=== PATIENT | male | born 1955 | race African-American/Black ===

== ENCOUNTER 2017-08-17 14:21 | Inpatient (IN) ==
[2017-08-17] MEDS ORDERED: levETIRAcetam 500 MG/5 ML VIAL IV ONE (14:44)
[2017-08-17 15:11] LABS: Basophils % 0.8 % (0.0-0.8); Eosinophils % 0.2 % (0.00-10.9); Hemoglobin 12.2 GM/DL (14.0-18.0); Immature Granulocytes % 0.6 %; Immature Granulocytes Absolute 0.03 #; Lymphocytes # 0.8 10*3/uL (1.4-4.0); Lymphocytes % 14.3 % (21.2-54.2); Mean Corpuscular HGB Conc 33.9 GM/DL (32-36); Mean Corpuscular Hemoglobin 29 PG (27-34); Mean Corpuscular Volume 85.7 FL (87-102); Mean Platelet Volume 10.6 FL (9.6-12.0); Monocytes # 0.4 10*3/uL (0.11-0.8); Monocytes % 7.8 % (1.7-12.7); Neutrophils % 76.3 % (38.7-73.9); Platelet Count 182 T/CUMM (130-400); Red Cell Distribution Width 15.3 % (9.3-17.3); White Blood Count 5.2 T/CUMM (4-12)
[2017-08-17 15:19] LABS: INR 0.9; Partial Thromboplastin Time 21.2 SECS (0-40)
[2017-08-17] MEDS ORDERED: LABETALOL 20 MG/4 ML SYRINGE IV STA ×2 (15:23→16:33)
[2017-08-17 15:26] LABS: Ammonia 24 UMOL/L (11-32)
[2017-08-17 15:27] LABS: Barbiturates Screen,Urine Negative (Negative); Benzodiazepines Screen,Urine Positive (Negative); Cannabinoid Screen,Urine Negative (Negative); Opiate Screen,Urine Negative (Negative); Phencyclidine Screen,Urine Negative (Negative)
[2017-08-17 15:29] LABS: Apearance,Urine Slightly Hazy (Clear); Bacteria,Urine Many /HPF (Few); Bilirubin,Urine Negative (Negative); Blood, Urine Small mg/dL (Negative); Glucose,Urine (UA) Negative (Negative); Ketones,Urine Negative (Negative); Mucus,Urine Occasional /LPF (Occasional); Nitrite,Urine Negative (Negative); Protein,Urine >=500 MG/DL; RBC,Urine 6 /HPF (0-4); Squamous Epithelial Cell,Urine Occasional /HPF (0-10); Urine Color Yellow (Yellow); Urine Specific Gravity 1.012 (1.001-1.035); Urine Urobilinogen < 2.0 EU/DL (0.2-1.0); WBC,Urine 47 /HPF (0-6)
[2017-08-17 15:42] LABS: Alanine Aminotransferase 14 U/L (16-61); Albumin 3.1 G/DL (3.4-5.0); Alkaline Phosphatase 127 U/L (45-117); Aspartate Amino Transferase 25 U/L (0-37); Bilirubin,Total < 0.39 MG/DL (0.2-1.0); Blood Urea Nitrogen 15 MG/DL (7-18); Calcium 8.5 MG/DL (8.5-10.1); Glucose 83 MG/DL (74-106); Potassium 4.7 MMOL/L (3.5-5.1); Sodium 136 MMOL/L (136-145); Total Protein 7.9 G/DL (6.4-8.3)
[2017-08-17] MEDS ORDERED: MAGNESIUM SULF RIDER 2 GM in PREMIX 1 EACH IV STA (15:48)
[2017-08-17] MEDS ORDERED: LABETALOL 20 MG/4 ML SYRINGE IV ONE ×2 (15:48→16:11)
[2017-08-17] MEDS ORDERED: cefTRIAXone 1,000 MG in SODIUM CHLORIDE 0.9% 100 ML IV STA (15:50)
[2017-08-17] MEDS ORDERED: MAGNESIUM SULF RIDER 50 ML IV ONE (15:53)
[2017-08-17] MEDS ORDERED: cefTRIAXone 1,000 MG VIAL ONE (16:10)
[2017-08-17] MEDS ORDERED: ASPIRIN 300 MG SUPP RECTAL SCH (16:30)
[2017-08-17] MEDS ORDERED: THIAMINE INJ 100 MG, FOLIC ACID INJ 1 MG, MAGNESIUM SULF INJ 2 GM, MULTIVITAMIN INJ 10 ... IV ONE ×2 (16:43→17:07)
[2017-08-17] MEDS ORDERED: LORazepam 2 MG/1 ML VIAL IV PRN (16:45)
[2017-08-17 16:49] LABS: Risk Ratio 2.14; Troponin I Only 0.041 NG/ML (0.00-0.045); VLDL CHOLESTEROL 15.6 MG/DL
[2017-08-17] MEDS: LABETALOL 20 MG/4 ML SYRINGE IV PRN (17:14)
[2017-08-17] MEDS: SODIUM CHLORIDE 0.9% 1,000 ML IV SCH (18:24)
[2017-08-17] MEDS: ENOXAPARIN 30 MG/0.3 ML SYRINGE SUBCUT SCH (20:27)
[2017-08-17] MEDS: ROSUVASTATIN 20 MG TABLET PO SCH (20:34)
[2017-08-18] MEDS: SODIUM CHLORIDE 0.9% 1,000 ML IV SCH ×4 (02:34→16:10)
[2017-08-18 06:22] LABS: Basophils % 0.6 % (0.0-0.8); Eosinophils # 0.1 10*3/uL (0.0-0.87); Hematocrit 33.1 VOL% (42.0-52.0); Hemoglobin 11.1 GM/DL (14.0-18.0); Immature Granulocytes % 0.4 %; Immature Granulocytes Absolute 0.02 #; Lymphocytes # 0.9 10*3/uL (1.4-4.0); Lymphocytes % 16.4 % (21.2-54.2); Mean Corpuscular HGB Conc 33.5 GM/DL (32-36); Mean Corpuscular Hemoglobin 29 PG (27-34); Mean Corpuscular Volume 87.3 FL (87-102); Mean Platelet Volume 11.6 FL (9.6-12.0); Monocytes # 0.7 10*3/uL (0.11-0.8); Monocytes % 12.9 % (1.7-12.7); Neutrophils # 3.6 10*3/uL (1.4-7.4); Neutrophils % 68.7 % (38.7-73.9); Platelet Count 168 T/CUMM (130-400); Red Blood Count 3.79 MC/CUMM (3.8-5.5); Red Cell Distribution Width 15.5 % (9.3-17.3); White Blood Count 5.2 T/CUMM (4-12)
[2017-08-18 06:51] LABS: Calcium 7.9 MG/DL (8.5-10.1); Osmolality,Calculated 277.5 MOS/KG (273-304); Potassium 4.7 MMOL/L (3.5-5.1)
[2017-08-18] MEDS ORDERED: cefTRIAXone 1,000 MG in SODIUM CHLORIDE 0.9% 100 ML IV SCH (09:00)
[2017-08-18] MEDS ORDERED: INFLUENZA VIRUS VACCINE 0.5 ML SYRINGE IM ONE (09:00)
[2017-08-18] MEDS: ASPIRIN CHEW 81 MG TABLET PO SCH (10:48)
[2017-08-18] MEDS ORDERED: cefTRIAXone 1,000 MG in SYRINGE 1 EACH IV SCH (16:00)
[2017-08-18] MEDS: ENOXAPARIN 30 MG/0.3 ML SYRINGE SUBCUT SCH (21:13)
[2017-08-18] MEDS: ROSUVASTATIN 20 MG TABLET PO SCH (21:14)
[2017-08-19] MEDS: ASPIRIN CHEW 81 MG TABLET PO SCH (09:57)
[2017-08-19] MEDS: cephALEXin 500 MG CAPSULE PO SCH ×2 (09:57→21:43)
[2017-08-19] MEDS: ENOXAPARIN 30 MG/0.3 ML SYRINGE SUBCUT SCH (21:43)
[2017-08-19] MEDS: ROSUVASTATIN 20 MG TABLET PO SCH (21:43)
[2017-08-20] MEDS: ASPIRIN CHEW 81 MG TABLET PO SCH (10:01)
[2017-08-20] MEDS: cephALEXin 500 MG CAPSULE PO SCH ×2 (10:01→21:28)
[2017-08-20] MEDS: ENOXAPARIN 30 MG/0.3 ML SYRINGE SUBCUT SCH (21:29)
[2017-08-20] MEDS: ROSUVASTATIN 20 MG TABLET PO SCH (21:31)
[2017-08-21] MEDS: cephALEXin 500 MG CAPSULE PO SCH (08:09)
[2017-08-21] MEDS: ASPIRIN CHEW 81 MG TABLET PO SCH (08:09)
[2017-08-21] MEDS: LABETALOL 20 MG/4 ML SYRINGE IV PRN (12:01)
[2017-08-21 12:19] VITALS: BP 211/107
== END 2017-08-21 14:25 | disposition home or self-care (01) | DRG 64 ==
LOC: N.ED 14:21 → N.EDINP 16:12 → SUATTDRO 16:12 → N.CC 16:44 → N.5E 08-18 12:15
PROVIDERS: ADMIT Internal Medicine; ATTEND Internal Medicine Geriatric Medicine

== ENCOUNTER 2017-11-30 21:51 | Inpatient (IN) ==
[2017-11-30] MEDS ORDERED: hydrALAZINE 20 MG/1 ML VIAL IV STA ×2 (22:09→23:25)
[2017-11-30] MEDS ORDERED: SODIUM CHLORIDE 0.9% 1,000 ML IV STA (22:09)
[2017-11-30 23:36] LABS: Basophils % 0.6 % (0.0-0.8); Eosinophils # 0.1 10*3/uL (0.0-0.87); Eosinophils % 2.2 % (0.00-10.9); Hematocrit 36.8 VOL% (42.0-52.0); Hemoglobin 12.1 GM/DL (14.0-18.0); Immature Granulocytes % 0.2 %; Immature Granulocytes Absolute 0.01 #; Lymphocytes # 1.2 10*3/uL (1.4-4.0); Lymphocytes % 24.7 % (21.2-54.2); Mean Corpuscular HGB Conc 32.9 GM/DL (32-36); Mean Corpuscular Hemoglobin 29 PG (27-34); Mean Corpuscular Volume 87.8 FL (87-102); Mean Platelet Volume 11.2 FL (9.6-12.0); Monocytes # 0.5 10*3/uL (0.11-0.8); Monocytes % 10.1 % (1.7-12.7); Neutrophils # 2.9 10*3/uL (1.4-7.4); Neutrophils % 62.2 % (38.7-73.9); Platelet Count 156 T/CUMM (130-400); Red Blood Count 4.19 MC/CUMM (3.8-5.5); Red Cell Distribution Width 14.6 % (9.3-17.3); White Blood Count 4.7 T/CUMM (4-12)
[2017-11-30] MEDS ORDERED: ASPIRIN 325 MG TABLET PO STA (23:50)
[2017-11-30 23:56] LABS: Alanine Aminotransferase 16 U/L (16-61); Albumin 3.2 G/DL (3.4-5.0); Alkaline Phosphatase 95 U/L (45-117); Aspartate Amino Transferase 13 U/L (0-37); Bilirubin,Total < 0.39 MG/DL (0.2-1.0); Blood Urea Nitrogen 25 MG/DL (7-18); Calcium 8.5 MG/DL (8.5-10.1); Glucose 83 MG/DL (74-106); Osmolality,Calculated 285.1 MOS/KG (273-304); Potassium 4.2 MMOL/L (3.5-5.1); Sodium 142 MMOL/L (136-145); Total Protein 7.7 G/DL (6.4-8.3)
[2017-12-01] MEDS ORDERED: niCARdipine INJ 25 MG in SODIUM CHLORIDE 0.9% 240 ML IV PRN ×3 (00:11→04:10)
[2017-12-01] MEDS ORDERED: ALBUTEROL 2.5 MG/3 ML NEB RESP TX PRN (01:01)
[2017-12-01] MEDS ORDERED: niCARdipine 25 MG/10 ML VIAL IV ONE (01:21)
[2017-12-01 01:29] LABS: INR 1.9; PT Patient Result 19.3 SECS
[2017-12-01] MEDS ORDERED: LABETALOL 20 MG/4 ML SYRINGE IV PRN (03:24)
[2017-12-01 06:47] LABS: Risk Ratio 3.42; VLDL CHOLESTEROL 15.6 MG/DL
[2017-12-01] MEDS: hydrALAZINE 20 MG/1 ML VIAL IV PRN ×3 (07:39→23:57)
[2017-12-01] MEDS ORDERED: DEXAMETHASONE 10 MG/1 ML VIAL IV ONE (19:30)
[2017-12-02] MEDS: DEXAMETHASONE 4 MG/1 ML VIAL IV SCH ×4 (00:27→21:01)
[2017-12-02] MEDS: hydrALAZINE 20 MG/1 ML VIAL IV PRN (00:47)
[2017-12-02] MEDS ORDERED: LABETALOL 100 MG/20 ML VIAL IV PRN (02:30)
[2017-12-02] MEDS: ASPIRIN EC 325 MG TABLET PO SCH ×2 (08:01→08:02)
[2017-12-02] MEDS: amLODIPine 10 MG TABLET PO SCH (08:01)
[2017-12-02] MEDS: LISINOPRIL 20 MG TABLET PO SCH ×2 (08:03→20:55)
[2017-12-02] MEDS ORDERED: ASPIRIN EC 81 MG TABLET PO SCH (09:00)
[2017-12-02] MEDS ORDERED: amLODIPine 5 MG TABLET PO SCH (09:00)
[2017-12-02] MEDS ORDERED: METOPROLOL TARTRATE 25 MG TABLET PO SCH (09:00)
[2017-12-02 12:29] LABS: Folate 10.6 NG/ML (5.4-24.0)
[2017-12-02] MEDS ORDERED: TUBERCULIN SKIN TEST 0.1 ML SYRINGE INTRADERM ONE (17:29)
[2017-12-02] MEDS: METOPROLOL TARTRATE 50 MG TABLET PO SCH (20:55)
[2017-12-03] MEDS: DEXAMETHASONE 4 MG/1 ML VIAL IV SCH ×3 (05:38→21:48)
[2017-12-03] MEDS: amLODIPine 10 MG TABLET PO SCH (10:14)
[2017-12-03] MEDS: ASPIRIN EC 325 MG TABLET PO SCH (10:14)
[2017-12-03] MEDS: LISINOPRIL 20 MG TABLET PO SCH ×2 (10:14→21:48)
[2017-12-03] MEDS: METOPROLOL TARTRATE 50 MG TABLET PO SCH ×2 (10:15→21:48)
[2017-12-04] MEDS: DEXAMETHASONE 4 MG/1 ML VIAL IV SCH (05:33)
[2017-12-04] MEDS: METOPROLOL TARTRATE 50 MG TABLET PO SCH ×2 (08:35→20:35)
[2017-12-04] MEDS: amLODIPine 10 MG TABLET PO SCH (08:35)
[2017-12-04] MEDS: LISINOPRIL 20 MG TABLET PO SCH ×2 (08:35→20:35)
[2017-12-04] MEDS: ASPIRIN EC 325 MG TABLET PO SCH (08:35)
[2017-12-04] MEDS ORDERED: NIFEdipine 10 MG CAPSULE PO PRN (08:40)
[2017-12-04] MEDS: QUEtiapine 25 MG TABLET PO SCH (20:35)
[2017-12-05] MEDS: ASPIRIN EC 325 MG TABLET PO SCH (08:43)
[2017-12-05] MEDS: METOPROLOL TARTRATE 50 MG TABLET PO SCH ×2 (08:43→21:04)
[2017-12-05] MEDS: amLODIPine 10 MG TABLET PO SCH (08:43)
[2017-12-05] MEDS: LISINOPRIL 20 MG TABLET PO SCH ×2 (08:43→21:04)
[2017-12-05] MEDS: QUEtiapine 25 MG TABLET PO SCH (21:04)
[2017-12-06] MEDS: LISINOPRIL 20 MG TABLET PO SCH ×3 (08:18→22:14)
[2017-12-06] MEDS: amLODIPine 10 MG TABLET PO SCH (08:18)
[2017-12-06] MEDS: ASPIRIN EC 325 MG TABLET PO SCH (08:18)
[2017-12-06] MEDS: METOPROLOL TARTRATE 50 MG TABLET PO SCH ×3 (08:18→22:14)
[2017-12-06] MEDS: QUEtiapine 25 MG TABLET PO SCH ×2 (21:21→22:14)
[2017-12-07 05:05] LABS: Basophils # 0.1 10*3/uL (0.0-0.2); Eosinophils # 0.2 10*3/uL (0.0-0.87); Eosinophils % 4.3 % (0.00-10.9); Hematocrit 37.7 VOL% (42.0-52.0); Hemoglobin 12.4 GM/DL (14.0-18.0); Immature Granulocytes % 0.4 %; Immature Granulocytes Absolute 0.02 #; Lymphocytes # 1.3 10*3/uL (1.4-4.0); Lymphocytes % 26.7 % (21.2-54.2); Mean Corpuscular HGB Conc 32.9 GM/DL (32-36); Mean Corpuscular Hemoglobin 29 PG (27-34); Mean Corpuscular Volume 87.5 FL (87-102); Mean Platelet Volume 11.1 FL (9.6-12.0); Monocytes # 0.6 10*3/uL (0.11-0.8); Neutrophils # 2.6 10*3/uL (1.4-7.4); Neutrophils % 54.6 % (38.7-73.9); Platelet Count 186 T/CUMM (130-400); Red Blood Count 4.31 MC/CUMM (3.8-5.5); Red Cell Distribution Width 14.9 % (9.3-17.3); White Blood Count 4.8 T/CUMM (4-12)
[2017-12-07 05:43] LABS: Calcium 8.4 MG/DL (8.5-10.1); Osmolality,Calculated 282.5 MOS/KG (273-304); Potassium 4.3 MMOL/L (3.5-5.1)
[2017-12-07] MEDS: LISINOPRIL 20 MG TABLET PO SCH ×2 (08:53→21:26)
[2017-12-07] MEDS: ASPIRIN EC 325 MG TABLET PO SCH (08:53)
[2017-12-07] MEDS: METOPROLOL TARTRATE 50 MG TABLET PO SCH ×2 (08:53→21:26)
[2017-12-07] MEDS: amLODIPine 10 MG TABLET PO SCH (08:53)
[2017-12-07] MEDS ORDERED: LACTULOSE 20 GM/30 ML UDCUP PO PRN (13:09)
[2017-12-07] MEDS: QUEtiapine 25 MG TABLET PO SCH (21:26)
[2017-12-08 07:54] VITALS: BP 169/85
[2017-12-08] MEDS: LISINOPRIL 20 MG TABLET PO SCH (09:21)
[2017-12-08] MEDS: METOPROLOL TARTRATE 50 MG TABLET PO SCH (09:21)
[2017-12-08] MEDS: ASPIRIN EC 325 MG TABLET PO SCH (09:21)
[2017-12-08] MEDS: amLODIPine 10 MG TABLET PO SCH (09:21)
== END 2017-12-08 11:55 | disposition hospice, home (50) | DRG 64 ==
LOC: EDBD → EDUNIT# → N.ED 21:51 → N.EDINP 12-01 01:01 → SUATTDRO 12-01 01:02 → N.TELES 12-01 02:51
PROVIDERS: ADMIT Internal Medicine; ATTEND Internal Medicine

== ENCOUNTER 2017-12-23 22:28 | Inpatient (IN) ==
[2017-12-23] MEDS ORDERED: hydrALAZINE 20 MG/1 ML VIAL IV STA (23:00)
[2017-12-23] MEDS ORDERED: SODIUM CHLORIDE 0.9% 1,000 ML IV STA (23:00)
[2017-12-23 23:16] LABS: Basophils % 0.3 % (0.0-0.8); Eosinophils % 0.3 % (0.00-10.9); Hematocrit 42.4 VOL% (42.0-52.0); Hemoglobin 14.4 GM/DL (14.0-18.0); Immature Granulocytes % 0.4 %; Immature Granulocytes Absolute 0.04 #; Lymphocytes # 0.8 10*3/uL (1.4-4.0); Lymphocytes % 7.8 % (21.2-54.2); Mean Corpuscular Hemoglobin 29 PG (27-34); Mean Corpuscular Volume 85.5 FL (87-102); Mean Platelet Volume 11.1 FL (9.6-12.0); Monocytes # 0.8 10*3/uL (0.11-0.8); Monocytes % 7.5 % (1.7-12.7); Neutrophils # 8.9 10*3/uL (1.4-7.4); Neutrophils % 83.7 % (38.7-73.9); Platelet Count 179 T/CUMM (130-400); Red Blood Count 4.96 MC/CUMM (3.8-5.5); Red Cell Distribution Width 14.1 % (9.3-17.3); White Blood Count 10.6 T/CUMM (4-12)
[2017-12-23 23:32] LABS: PT Patient Result 10.6 SECS; Partial Thromboplastin Time 25.5 SECS (0-40)
[2017-12-23 23:45] LABS: Albumin 2.8 G/DL (3.4-5.0); Bilirubin,Total 0.6 MG/DL (0.2-1.0); Calcium 8.9 MG/DL (8.5-10.1); Osmolality,Calculated 280.7 MOS/KG (273-304); Potassium 4.3 MMOL/L (3.5-5.1); Total Protein 8.4 G/DL (6.4-8.3)
[2017-12-23 23:46] LABS: Troponin I Only 0.053 NG/ML (0.00-0.045)
[2017-12-24 00:14] LABS: Apearance,Urine Slightly Hazy (Clear); Bacteria,Urine Many /HPF (Few); Bilirubin,Urine Negative (Negative); Blood, Urine Large mg/dL (Negative); Glucose,Urine (UA) Negative (Negative); Ketones,Urine 20 mg/dL (Negative); Mucus,Urine Moderate /LPF (Occasional); Nitrite,Urine Positive (Negative); Protein,Urine >=500 MG/DL; RBC,Urine 6 /HPF (0-4); Urine Color Yellow (Yellow); WBC,Urine 51 /HPF (0-6)
[2017-12-24] MEDS ORDERED: LEVOFLOXACIN INJ 750 MG in PREMIX 1 EACH IV STA (00:17)
[2017-12-24] MEDS ORDERED: DILTIAZEM 50 MG/10 ML VIAL IV STA ×2 (00:19→01:05)
[2017-12-24] MEDS ORDERED: DILTIAZEM INJ 100 MG in SODIUM CHLORIDE 0.9% 100 ML IV SCH ×2 (01:30→10:30)
[2017-12-24] MEDS ORDERED: METOPROLOL TARTRATE 5 MG/5 ML VIAL IV ONE (02:18)
[2017-12-24] MEDS ORDERED: METOPROLOL TARTRATE 5 MG/5 ML VIAL IV STA (02:18)
[2017-12-24] MEDS ORDERED: ALBUTEROL/IPRATROPIUM 3 ML NEB RESP TX PRN (02:21)
[2017-12-24] MEDS ORDERED: ACETAMINOPHEN 325 MG TABLET PO PRN (02:32)
[2017-12-24] MEDS ORDERED: ONDANSETRON 4 MG/2 ML VIAL IV PRN (02:32)
[2017-12-24] MEDS: PIPERACILLIN/TAZOBACTAM 3,375 MG in SODIUM CHLORIDE 0.9% 100 ML IV SCH ×3 (04:11→18:52)
[2017-12-24] MEDS: SODIUM CHLORIDE 0.9% 1,000 ML IV SCH ×3 (04:11→20:13)
[2017-12-24 04:32] LABS: Basophils % 0.1 % (0.0-0.8); Eosinophils % 0.1 % (0.00-10.9); Hematocrit 37.2 VOL% (42.0-52.0); Hemoglobin 12.9 GM/DL (14.0-18.0); Immature Granulocytes % 0.4 %; Immature Granulocytes Absolute 0.04 #; Lymphocytes # 0.5 10*3/uL (1.4-4.0); Lymphocytes % 4.8 % (21.2-54.2); Mean Corpuscular HGB Conc 34.7 GM/DL (32-36); Mean Corpuscular Hemoglobin 29 PG (27-34); Mean Corpuscular Volume 84.4 FL (87-102); Mean Platelet Volume 11.6 FL (9.6-12.0); Monocytes # 0.9 10*3/uL (0.11-0.8); Monocytes % 8.3 % (1.7-12.7); Neutrophils # 9.1 10*3/uL (1.4-7.4); Neutrophils % 86.3 % (38.7-73.9); Platelet Count 168 T/CUMM (130-400); Red Blood Count 4.41 MC/CUMM (3.8-5.5); Red Cell Distribution Width 14.2 % (9.3-17.3); White Blood Count 10.5 T/CUMM (4-12)
[2017-12-24 05:02] LABS: Band Neutrophils 1 % (0-10); Lymphocytes 6 % (20-55); Platelet Estimate Normal; Segmented Neutrophils 85 % (50-85); Total Cells Counted 100
[2017-12-24 05:13] LABS: Osmolality,Calculated 283.4 MOS/KG (273-304); Potassium 4.2 MMOL/L (3.5-5.1)
[2017-12-24] MEDS ORDERED: ASPIRIN EC 325 MG TABLET PO SCH (09:00)
[2017-12-24] MEDS ORDERED: CARVEDILOL 12.5 MG TABLET PO SCH (09:00)
[2017-12-24] MEDS ORDERED: LISINOPRIL 5 MG TABLET PO SCH (09:00)
[2017-12-24] MEDS ORDERED: PANTOPRAZOLE 40 MG TABLET PO SCH (09:00)
[2017-12-24] MEDS ORDERED: DILTIAZEM CD 120 MG CAPSULE PO SCH (09:00)
[2017-12-24] MEDS: ENOXAPARIN 40 MG/0.4 ML SYRINGE SUBCUT SCH (09:06)
[2017-12-24] MEDS ORDERED: DEXAMETHASONE 10 MG/1 ML VIAL IV ONE (10:17)
[2017-12-24] MEDS ORDERED: GLUCAGON 1 MG VIAL IM PRN (10:19)
[2017-12-24] MEDS ORDERED: DEXTROSE 50% 25 GM/50 ML VIAL IV PRN (10:19)
[2017-12-24] MEDS ORDERED: cloNIDine 0.3 MG/24 HR PATCH TRANSDERM SCH (11:00)
[2017-12-24] MEDS: PANTOPRAZOLE 40 MG VIAL IV SCH (11:23)
[2017-12-24] MEDS: PROPRANOLOL 1 MG/1 ML VIAL IV SCH ×3 (11:23→23:00)
[2017-12-24] MEDS: INSULIN REGULAR 100 UNIT/ML SUBCUT SCH ×2 (11:26→18:58)
[2017-12-24] MEDS ORDERED: niCARdipine 25 MG/10 ML VIAL IV ONE (13:15)
[2017-12-24] MEDS: niCARdipine INJ 25 MG in SODIUM CHLORIDE 0.9% 240 ML IV PRN ×3 (13:21→22:47)
[2017-12-24] MEDS: DEXAMETHASONE 4 MG/1 ML VIAL IV SCH (18:50)
[2017-12-24] MEDS ORDERED: ROSUVASTATIN 20 MG TABLET PO SCH (21:00)
[2017-12-25] MEDS: INSULIN REGULAR 100 UNIT/ML SUBCUT SCH ×4 (00:29→18:03)
[2017-12-25] MEDS: niCARdipine INJ 25 MG in SODIUM CHLORIDE 0.9% 240 ML IV PRN ×3 (01:17→23:38)
[2017-12-25] MEDS ORDERED: LORazepam 2 MG/1 ML VIAL IV ONE (02:04)
[2017-12-25] MEDS ORDERED: FOSPHENYTOIN 1,000 MG.PE in SODIUM CHLORIDE 0.9% 250 ML IV ONE (02:04)
[2017-12-25] MEDS: DEXAMETHASONE 4 MG/1 ML VIAL IV SCH ×3 (02:21→15:28)
[2017-12-25] MEDS: PIPERACILLIN/TAZOBACTAM 3,375 MG in SODIUM CHLORIDE 0.9% 100 ML IV SCH ×3 (02:27→23:38)
[2017-12-25] MEDS: SODIUM CHLORIDE 0.9% 1,000 ML IV SCH ×3 (04:04→19:08)
[2017-12-25] MEDS: PROPRANOLOL 1 MG/1 ML VIAL IV SCH ×4 (05:56→23:38)
[2017-12-25 06:06] LABS: Calcium 7.7 MG/DL (8.5-10.1); Osmolality,Calculated 280.7 MOS/KG (273-304); Potassium 4.5 MMOL/L (3.5-5.1)
[2017-12-25] MEDS: PANTOPRAZOLE 40 MG VIAL IV SCH (08:50)
[2017-12-25] MEDS: ENOXAPARIN 40 MG/0.4 ML SYRINGE SUBCUT SCH (08:57)
[2017-12-26] MEDS: INSULIN REGULAR 100 UNIT/ML SUBCUT SCH ×3 (00:52→12:05)
[2017-12-26] MEDS: DEXAMETHASONE 4 MG/1 ML VIAL IV SCH ×2 (02:46→10:01)
[2017-12-26] MEDS: SODIUM CHLORIDE 0.9% 1,000 ML IV SCH ×2 (02:47→11:16)
[2017-12-26] MEDS: PROPRANOLOL 1 MG/1 ML VIAL IV SCH ×3 (04:03→15:59)
[2017-12-26] MEDS: niCARdipine INJ 25 MG in SODIUM CHLORIDE 0.9% 240 ML IV PRN ×2 (05:16→07:04)
[2017-12-26] MEDS: PIPERACILLIN/TAZOBACTAM 3,375 MG in SODIUM CHLORIDE 0.9% 100 ML IV SCH ×2 (06:19→15:58)
[2017-12-26] MEDS ORDERED: niCARdipine 25 MG/10 ML VIAL IV ONE (06:22)
[2017-12-26] MEDS: ENOXAPARIN 40 MG/0.4 ML SYRINGE SUBCUT SCH (10:00)
[2017-12-26] MEDS: PANTOPRAZOLE 40 MG VIAL IV SCH (10:03)
[2017-12-26] MEDS: MORPHINE 4 MG/1 ML VIAL IV PRN (12:33)
[2017-12-27] MEDS: SODIUM CHLORIDE 0.9% 1,000 ML IV SCH ×4 (00:27→16:09)
[2017-12-28] MEDS ORDERED: hydrALAZINE 20 MG/1 ML VIAL IV PRN (06:17)
[2017-12-28] MEDS ORDERED: DEXTROSE 50% 25 GM/50 ML VIAL IV PRN (06:18)
[2017-12-28] MEDS ORDERED: ACETAMINOPHEN 650 MG SUPP RECTAL PRN (07:56)
[2017-12-28] MEDS ORDERED: METOPROLOL TARTRATE 5 MG/5 ML VIAL IV ONE (08:33)
[2017-12-28] MEDS: MORPHINE 4 MG/1 ML VIAL IV PRN ×4 (08:38→18:01)
[2017-12-28] MEDS: SODIUM CHLORIDE 0.9% 1,000 ML IV SCH (09:43)
[2017-12-29] MEDS: MORPHINE 4 MG/1 ML VIAL IV PRN ×3 (01:49→12:48)
[2017-12-29] MEDS ORDERED: LORazepam 2 MG/1 ML VIAL IV PRN (16:02)
[2017-12-29] MEDS: SODIUM CHLORIDE 0.9% 1,000 ML IV SCH (16:46)
[2017-12-30] MEDS: MORPHINE 4 MG/1 ML VIAL IV PRN ×2 (05:33→12:04)
[2017-12-30 12:16] VITALS: BP 178/113
[2017-12-31] MEDS ORDERED: TUBERCULIN SKIN TEST 0.1 ML SYRINGE INTRADERM ONE (16:51)
[2017-12-31] MEDS: MORPHINE 4 MG/1 ML VIAL IV PRN (19:19)
== END 2018-01-01 17:46 | DRG 54 ==
LOC: EDBD → EDUNIT# → N.ED 22:28 → SUATTDRO 12-24 02:33 → N.EDINP 12-24 02:33 → N.CC 12-24 03:25 → N.4E 12-26 16:52
PROVIDERS: ADMIT Internal Medicine; ATTEND Internal Medicine